=== PATIENT | female | born 1935 | race Caucasian/White ===

== ENCOUNTER 2021-01-30 15:27 | Inpatient (IN) ==
[2021-02-01] MEDS ORDERED: Dextrose Gel 15 GM/37.5 ML TUBE PO PRN ×2 (17:33)
[2021-02-01] MEDS ORDERED: D5% in Water 1,000 ML IVC PRN (17:33)
[2021-02-01] MEDS ORDERED: *HR* Dextrose 50 % in Water (Vial) 50 ML VIAL IVP PRN (17:33)
[2021-02-01] MEDS: Insulin LISPRO 300 UNITS/3 ML VIAL SUBQ SCH ×2 (18:44→21:26)
[2021-02-01] MEDS ORDERED: *HR* OxyCODONE Immed Rel 5 MG TABLET PO PRN (18:45)
[2021-02-01] MEDS: *HR* Metformin 500 MG TABLET PO SCH (21:26)
[2021-02-01] MEDS: Gabapentin 300 MG CAPSULE PO SCH (21:28)
[2021-02-01] MEDS: levETIRAcetam 250 MG TABLET PO SCH (21:28)
[2021-02-02 05:10] LABS: Basophils % 0.5 %; Eosinophils # 0.3 K/mcL (0.0-0.6); Eosinophils % 3.3 %; Hematocrit 39.1 % (35.3-44.9); Hemoglobin 12.8 g/dL (11.5-15.4); Immature Granulocytes % 0.4 % (0-4); Lymphocytes # 2.7 K/mcL (0.6-4.6); Mean Corpuscular HGB Conc 32.7 g/dL (31.6-35.5); Mean Corpuscular Volume 94.7 fL (83.0-100.0); Mean Platelet Volume 9.8 fL (9.4-12.4); Monocytes # 0.9 K/mcL (0.0-1.3); Monocytes % 10.7 %; Neutrophils # 4.3 K/mcL (1.6-8.9); Platelet Count 270 K/mcL (140-400); Red Blood Count 4.13 M/mcL (3.82-4.97); Red Cell Distribution Width 12.6 % (11.5-14.5); Segmented Neutrophils % 52.1 %; White Blood Count 8.2 K/mcL (4.3-11.1)
[2021-02-02 05:31] LABS: Alanine Aminotransferase 30 Units/L (7-52); Albumin 3.6 g/dL (3.5-5.7); Albumin/Globulin Ratio 1.3 (1.1-2.2); Alkaline Phosphatase 48 Units/L (34-104); Aspartate Amino Transferase 20 Units/L (13-39); BUN/Creatinine Ratio 17 (6-26); Bilirubin,Total 0.5 mg/dL (0.3-1.0); Blood Urea Nitrogen 14 mg/dL (8-23); Calcium 8.9 mg/dL (8.6-10.3); Carbon Dioxide 25 mEq/L (23-29); Chloride 104 mEq/L (98-107); Globulin 2.7 g/dL (2.4-3.5); Glucose 129 mg/dL (70-105); Magnesium 1.7 mg/dL (1.6-2.6); Osmolality,Calculated 288 (280-300); Potassium 3.6 mEq/L (3.5-5.1); Sodium 138 mEq/L (136-145); Total Protein 6.3 g/dL (6.4-8.9); eGFR For African Americans > 60 (> 60); eGFR For Non-African Americans > 60 (> 60)
[2021-02-02] MEDS: *HR* Enoxaparin 40 MG/0.4 ML SYRINGE SQ SCH (05:44)
[2021-02-02] MEDS: levETIRAcetam 250 MG TABLET PO SCH ×2 (06:27→18:08)
[2021-02-02] MEDS: Insulin LISPRO 300 UNITS/3 ML VIAL SUBQ SCH ×4 (08:20→19:52)
[2021-02-02] MEDS: lisinopriL 10 MG TABLET PO SCH (08:20)
[2021-02-02] MEDS: Aspirin Enteric Coated 81 MG Tablet PO SCH (08:21)
[2021-02-02] MEDS: Cyanocobalamin (B-12) 1,000 MCG TABLET PO SCH (08:21)
[2021-02-02] MEDS: *HR* Metformin 500 MG TABLET PO SCH ×2 (08:22→16:52)
[2021-02-02] MEDS: Gabapentin 300 MG CAPSULE PO SCH (19:50)
[2021-02-02] MEDS ORDERED: Ondansetron ODT 4 MG TAB.RAPDIS SL PRN (20:20)
[2021-02-02] MEDS: Mag Hydrox/Al Hydrox/Simeth 30 ML UDC PO PRN (20:32)
[2021-02-02] MEDS: Bismuth Subsalicylate 120 ML ORAL SUSPENSION PO PRN (23:23)
[2021-02-03] MEDS: *HR* Enoxaparin 40 MG/0.4 ML SYRINGE SQ SCH (04:54)
[2021-02-03] MEDS: levETIRAcetam 250 MG TABLET PO SCH ×2 (06:06→20:30)
[2021-02-03] MEDS: *HR* Metformin 500 MG TABLET PO SCH ×2 (08:19→16:28)
[2021-02-03] MEDS: Insulin LISPRO 300 UNITS/3 ML VIAL SUBQ SCH ×4 (08:19→20:31)
[2021-02-03] MEDS: Aspirin Enteric Coated 81 MG Tablet PO SCH (08:19)
[2021-02-03] MEDS: Cyanocobalamin (B-12) 1,000 MCG TABLET PO SCH (08:19)
[2021-02-03] MEDS: lisinopriL 10 MG TABLET PO SCH (08:19)
[2021-02-03] MEDS: Gabapentin 300 MG CAPSULE PO SCH (20:31)
[2021-02-03] MEDS: Bismuth Subsalicylate 120 ML ORAL SUSPENSION PO PRN (20:31)
[2021-02-04] MEDS: *HR* Enoxaparin 40 MG/0.4 ML SYRINGE SQ SCH (05:42)
[2021-02-04] MEDS: levETIRAcetam 250 MG TABLET PO SCH ×2 (05:42→18:32)
[2021-02-04] MEDS: Insulin LISPRO 300 UNITS/3 ML VIAL SUBQ SCH ×4 (07:56→20:54)
[2021-02-04] MEDS: *HR* Metformin 500 MG TABLET PO SCH ×2 (08:38→17:00)
[2021-02-04] MEDS: Cyanocobalamin (B-12) 1,000 MCG TABLET PO SCH (08:38)
[2021-02-04] MEDS: Aspirin Enteric Coated 81 MG Tablet PO SCH (08:38)
[2021-02-04] MEDS: lisinopriL 10 MG TABLET PO SCH (08:38)
[2021-02-04] MEDS: Gabapentin 300 MG CAPSULE PO SCH (20:54)
[2021-02-05] MEDS: *HR* Enoxaparin 40 MG/0.4 ML SYRINGE SQ SCH (05:52)
[2021-02-05] MEDS: levETIRAcetam 250 MG TABLET PO SCH ×2 (05:52→17:38)
[2021-02-05] MEDS: Insulin LISPRO 300 UNITS/3 ML VIAL SUBQ SCH ×4 (07:45→19:48)
[2021-02-05] MEDS: Aspirin Enteric Coated 81 MG Tablet PO SCH (08:20)
[2021-02-05] MEDS: Cyanocobalamin (B-12) 1,000 MCG TABLET PO SCH (08:20)
[2021-02-05] MEDS: lisinopriL 10 MG TABLET PO SCH (08:20)
[2021-02-05] MEDS: *HR* Metformin 500 MG TABLET PO SCH ×2 (08:20→17:38)
[2021-02-05] MEDS: Bismuth Subsalicylate 120 ML ORAL SUSPENSION PO PRN ×2 (09:28→17:41)
[2021-02-05] MEDS: Mag Hydrox/Al Hydrox/Simeth 30 ML UDC PO PRN (13:52)
[2021-02-05] MEDS: Gabapentin 300 MG CAPSULE PO SCH (19:47)
[2021-02-06] MEDS: Bismuth Subsalicylate 120 ML ORAL SUSPENSION PO PRN (04:12)
[2021-02-06] MEDS: *HR* Enoxaparin 40 MG/0.4 ML SYRINGE SQ SCH (04:15)
[2021-02-06] MEDS: levETIRAcetam 250 MG TABLET PO SCH (04:16)
[2021-02-06 06:58] VITALS: BP 122/64
[2021-02-06] MEDS: Aspirin Enteric Coated 81 MG Tablet PO SCH (08:53)
[2021-02-06] MEDS: Cyanocobalamin (B-12) 1,000 MCG TABLET PO SCH (08:53)
[2021-02-06] MEDS: lisinopriL 10 MG TABLET PO SCH (08:53)
[2021-02-06] MEDS: Insulin LISPRO 300 UNITS/3 ML VIAL SUBQ SCH ×2 (08:53→11:48)
[2021-02-06] MEDS: *HR* Metformin 500 MG TABLET PO SCH (08:53)
== END 2021-02-06 14:45 | disposition home or self-care (01) | DRG 57 ==
LOC: INPGRE 02-01 17:14
PROVIDERS: ADMIT Family Medicine; ATTEND Family Medicine